=== PATIENT | female | born 1980 | race Caucasian/White ===

== ENCOUNTER → 2024-08-16 | Outpatient (CLI) | payer BC, SELFPAY ==
--- NOTE | 2024-08-16 09:30 | XR_ITS ---
Examination: Esophagram standard Fluoroscopy 16 spot fluoroscopic films of the esophagus Upright PA chest single view Upright soft tissue lateral neck single view Date and time: August 16, 2024 0941 hours INDICATIONS: Preop gastric bypass TECHNIQUE AND FINDINGS: Patient swallowed thin barium with 16 spot fluoroscopic films of the esophagus Primary peristaltic esophageal waves No mucosal thickening. No constricting esophageal lesion Upright PA chest demonstrates normal heart size clear lungs Upright soft tissue lateral neck demonstrates normal epiglottis IMPRESSION: Normal esophagram Fluoroscopy 0.11 minute 16 spot fluoroscopic films of the esophagus obtained
--- NOTE | 2024-08-16 10:00 | XR_ITS ---
Examination: Abdomen sonogram, complete Date and time of exam: August 17, 2019 5:10 AM INDICATIONS: Preop study, bariatric surgery. Technique: Multiple real-time grayscale transabdominal sonographic images of the abdomen have been obtained. Findings: Normal gallbladder Normal common bile duct 0.5 cm Pancreatic head 2.3 cm Aorta not enlarged. Liver 15.6 cm left lobe liver lesion 5.2 x 5.9 x 5.7 cm Normal portal venous flow Patent IVC Right kidney 9.3 cm cortex 1.2 cm Lower pole probable angiomyolipoma 9 x 6 x 7 mm Left kidney 12.4 cm cortex 1.5 cm Spleen 13.3 cm IMPRESSION: Recommend CT examination abdomen follow-up post intravenous contrast to assess left lobe liver lesion and also confirm angiomyolipoma lower pole right kidney
== END | disposition home or self-care (01) ==
PROVIDERS: PCP Surgery; Referring Provider Surgery; Visit Provider Surgery
DX: Z01.818 Encounter for other preprocedural examination (principal); K76.9 Liver disease, unspecified
CPT/HCPCS: 74220; 76700; A4649